=== PATIENT | male | born 1955 | race Caucasian/White ===

== ENCOUNTER → 2021-12-08 | Day surgery (SDC) | payer MEDICARE, OTHER ==
[~2021-12-08] MED LIST: Lactated Ringers 1,000 ML IV SCH; Sodium Chloride 0.9% 1,000 ML IV SCH
== END ==
LOC: CC.SDS 07:31
PROVIDERS: ATTEND Surgery
DX: D50.0 Iron deficiency anemia secondary to blood loss (chronic) (principal); Z53.09 Procedure and treatment not carried out because of other contraindication; I10 Essential (primary) hypertension; I25.2 Old myocardial infarction; E11.9 Type 2 diabetes mellitus without complications; J44.9 Chronic obstructive pulmonary disease, unspecified; G47.33 Obstructive sleep apnea (adult) (pediatric); Z86.010 Personal history of colon polyps; Z87.19 Personal history of other diseases of the digestive system; Z79.84 Long term (current) use of oral hypoglycemic drugs; Z79.899 Other long term (current) drug therapy; Z79.52 Long term (current) use of systemic steroids
CPT/HCPCS: J7030